=== PATIENT | male | born 1985 | race Two or more races ===

== ENCOUNTER 2020-10-05 11:36 | Emergency (ER) | payer SELFPAY ==
[~2020-10-05] VITALS: Ht 170.2 cm; Wt 52.4 kg
--- NOTE | 2020-10-05 12:13 | NUR ---
BREAK RN: THIS IS A 34 YEAR OLD MALE WHO C.O OF LT TONSIL SWELLING X2 DAYS.
[2020-10-05] MEDS ORDERED: DEXAMETHASONE 4 MG/ML, 1ML PO ONE (12:30)
--- NOTE | 2020-10-05 12:31 | NUR ---
BREAK RN: REPORT BACK TO PRIMARY RNS, MARIA M
[2020-10-05 13:17] LABS: BASOPHILS % (AUTO) 0 % (0-1); EOSINOPHILS % (AUTO) 0 % (1-7); LYMPHOCYTES % (AUTO) 11 % (22-44); MEAN CORPUSCULAR HEMOGLOBIN 30.4 pg (27.5-34.5); MEAN CORPUSCULAR HGB CONC 34.8 g/dL (33.2-36.2); MEAN PLATELET VOLUME 8.9 fL (7.4-10.4); MONOCYTES % (AUTO) 7 % (2-9); NEUTROPHILS % (AUTO) 82 % (42-75); PLATELET COUNT 158 x10^3/uL (130-400); RED BLOOD COUNT 5.42 x10^6/uL (4.38-5.82); RED CELL DISTRIBUTION WIDTH 13.1 % (9.4-14.8)
[2020-10-05 13:20] LABS: ALBUMIN 4.7 g/dL (3.4-5.0); ANION GAP 3 mmol/L (5-15); CALCIUM 9.5 mg/dL (8.5-10.1); CHLORIDE 109 mmol/L (98-107); CREATININE 1.38 mg/dL (0.7-1.3)
[2020-10-05] MEDS ORDERED: DEXAMETHASONE 4 MG/ML, 1ML ONE (13:20)
--- NOTE | 2020-10-05 13:34 | NUR ---
PT UPRIGHT ON GURNEY, AWAKE AND TEXTING ON PHONE. NAD OR RESPIRATORY DISTRESS NOTED. RESPONDS APPROPRIATELY TO STAFF. COMFORT MEASURES PROVIDED, CALL LIGHT WITHIN REACH. AWAITING CT.
[2020-10-05 13:36] LABS: MD SCAN
--- NOTE | 2020-10-05 13:49 | NUR ---
CT WAITING FOR IV ACCESS
--- NOTE | 2020-10-05 14:05 | NUR ---
DRY KILN OPERATOR: CALLED CT REGARDING DELAY IN EXAM, CT STATES PT NEEDS IV, PRIMARY RN'S ARMANDO AND ELIGIO AWARE. PRADIP RN AT BEDSIDE TO PLACE IV FOR EXAM
--- NOTE | 2020-10-05 14:12 | NUR ---
task RN: assumed care of pt on behalf of primary RN for IV start only. IV placed. well tolerated. pt on cell phone. updated on POC
--- NOTE | 2020-10-05 14:15 | NUR ---
EXTERNAL GRINDER: CT CALLED BY PRADIP MOYA AND NOTIFIED PT READY FOR EXAM AND IV IN PLACE
[2020-10-05] MEDS ORDERED: SODIUM CHLORIDE FLUSH 10ML SYR IVF ONE (14:30)
[2020-10-05] MEDS ORDERED: OMNIPAQUE 350 MG/ML, 100ML BOTTLE ONE (14:32)
--- NOTE | 2020-10-05 14:40 | NUR ---
PT BACK FROM CT. NAD/VSS. CALL LIGHT WITHIN REACH.
--- NOTE | 2020-10-05 14:47 | NUR ---
REPORT GIVEN TO
--- NOTE | 2020-10-05 15:02 | NUR ---
PT RESTING [facility]. NAD
[2020-10-05] MEDS ORDERED: MORPHINE SULFATE 4 MG/ML, 1ML ONE (15:25)
[2020-10-05] MEDS ORDERED: MORPHINE SULFATE 4 MG/ML, 1ML IVPush PRN (15:30)
[2020-10-05] MEDS ORDERED: SODIUM CHLORIDE 0.9% 1,000ML IVBOLUS ONE (15:30)
--- NOTE | 2020-10-05 15:40 | NUR ---
PT MEDICATED PER MAR
[2020-10-05 16:44] VITALS: BP 130/81
--- NOTE | 2020-10-05 16:44 | NUR ---
PT RESTING COMFORTABLY IN [facility]. NAD. VSS
--- NOTE | 2020-10-05 17:56 | NUR ---
PT TO RESTROOM. PT REPORTS "MY THROAT FEELS LIKE THE SWELLING HAS GONE DOWN"
== END 2020-10-05 18:57 | disposition home or self-care (01) ==
LOC: ED 14:05
DX: J36 Peritonsillar abscess (principal)
CPT/HCPCS: 36415; 70491; 80048; 82040; 85025; 87070; 87205; 96374; 99285; J1100; J2270; J7030; Q9967; 87077

== ENCOUNTER 2020-10-22 19:00 | Emergency (ER) | payer OTHER ==
[~2020-10-22] VITALS: Ht 172.7 cm; Wt 65.0 kg
--- NOTE | 2020-10-22 19:00 | NUR ---
INITIAL PT CONTACT. BIBA C/O [facility]. PER EMS "PT WAS OUT FOR ABOUT 5 MINUTES". HX OF SAME X2. "I HAVE LOW IRON AND I'M SUPPOSED TO BE TAKING IRON SUPPLEMENTS BUT HAVEN'T BEEN". PT STATES HE "DONATED PLASMA TODAY BUT HAVEN'T BEEN EATING AND DRINKING MUCH WATER SINCE THEN, THAT'S NORMAL FOR ME THOUGH". PIV STARTED IN FIELD, 4MG ZOFRAN AND APPROX 900ML NS GIVEN. BLOOD GLUCOSE 93. PT STATES "I FEEL A LOT BETTER NOW, NO REAL COMPLAINTS AT THIS POINT". PT SITTING UPRIGHT ON GURNEY, NADN, VSS. PT DENIES ANY NEEDS AT THIS TIME. CALL LIGHT AND BELONGINGS WITHIN REACH. PLACED ON CONTINUOUS PULSE OX AND CARDIAC MONITORING. AWAITING ERP
[2020-10-22 19:34] VITALS: BP 102/60
--- NOTE | 2020-10-22 19:42 | NUR ---
Patient given discharge instructions and they have confirmed that they understand the instructions. Patient ambulatory with steady gait.
== END 2020-10-22 19:44 | disposition home or self-care (01) ==
LOC: ED 19:20
DX: S50.312A Abrasion of left elbow, initial encounter (principal); R55 Syncope and collapse; G89.11 Acute pain due to trauma; X58.XXXA Exposure to other specified factors, initial encounter; Y93.89 Activity, other specified; Y92.89 Other specified places as the place of occurrence of the external cause; Y99.8 Other external cause status
CPT/HCPCS: 99283